=== PATIENT | female | born 1980 | race Hispanic/Latino ===

== ENCOUNTER 2019-11-10 14:47 | Observation (INO) | payer OTHER ==
[~2019-11-10] VITALS: Ht 149.9 cm; Wt 75.3 kg
--- NOTE | 2019-11-10 16:14 | Diagnostic Imaging Report ---
EXAMINATION: CXR 2 VIEW - HOPD INDICATION: Chest pain COMPARISON: None FINDINGS: LINES/TUBES:None LUNGS:The lungs are well-inflated. No focal consolidation or pulmonary edema. PLEURA:No pleural effusion or pneumothorax. MEDIASTINUM:The cardiomediastinal silhouette appears normal in size and shape. BONES/SOFT TISSUES:No acute osseous injury. ABDOMEN:No free air under the diaphragm. IMPRESSION: No focal pneumonia or pulmonary edema. Signed by: Little Navas MD on 11/10/2019 4:11 PM
[2019-11-10] MEDS ORDERED: SODIUM CHLORIDE 0.9% 1000ML 1,000 ML IV STA (16:48)
[2019-11-10] MEDS ORDERED: SODIUM CHLORIDE 0.9% 1000ML 1,000 ML ONE (16:54)
[2019-11-10] MEDS ORDERED: IOPAMIDOL 370 MG/ML 200 ML INFUS..BTL INJ ONE (16:59)
[2019-11-10] MEDS ORDERED: METOPROLOL TARTRATE INJ 1 MG/ML VIAL IV ONE (17:00)
--- NOTE | 2019-11-10 18:13 | Diagnostic Imaging Report ---
EXAM: CT Chest WITH contrast (PE Protocol) INDICATION: ^pain/ r/o pe COMPARISON: Same day chest x-ray TECHNIQUE: Chest was scanned utilizing a multidetector helical scanner from the lung apex through the level of the diaphragm after administration of IV contrast. Thin section reconstructions were obtained with special concentration on the pulmonary arteries. Coronal and sagittal reformations were obtained. Dose modulation, iterative reconstruction, and/or weight based adjustment of the mA/kV was utilized to reduce the radiation dose to as low as reasonably achievable. Pulmonary embolism protocol was performed. IV CONTRAST: 100 mL of Omnipaque 370 COMPLICATIONS: None RADIATION DOSE: Total DLP: 500.25 mGy*cm Estimated effective dose: (DLP x 0.014 x size factor) mSv CTDIvol has been reviewed. It is below the limits set by the Radiation Protocol Committee (RPC). FINDINGS: LINES/ TUBES: None. LUNGS AND AIRWAYS: No filling defect is identified within the pulmonary arteries to the segmental level. The lungs are unremarkable. Airways are normal. PLEURA: The pleural spaces are clear. HEART AND MEDIASTINUM: The thyroid gland is normal. No mediastinal, hilar or axillary lymphadenopathy. The heart is normal in size.. There is no pericardial effusion. . Main pulmonary artery measures 2.3 cm in diameter. UPPER ABDOMEN: Cholelithiasis. BONES: The visualized bony thorax is within normal limits. SOFT TISSUES: Unremarkable. IMPRESSION: No pulmonary emboli. Cholelithiasis without CT evidence of cholecystitis. Signed by: Dr. Alexx Pena MD on 11/10/2019 6:10 PM
--- NOTE | 2019-11-10 18:33 | Diagnostic Imaging Report ---
EXAM: CT Abdomen and Pelvis WITH contrast INDICATION: ^pain/ iv contrast r/o tumor(pheochromocytoma) COMPARISON: None. TECHNIQUE: Abdomen and pelvis were scanned utilizing a multidetector helical scanner from the lung base to the pubic symphysis after administration of IV contrast. Coronal and sagittal reformations were obtained. Dose modulation, iterative reconstruction, and/or weight based adjustment of the mA/kV was utilized to reduce the radiation dose to as low as reasonably achievable. Routine protocol was performed. Scan was performed when during portal venous phase. IV CONTRAST: 100 mL of Isovue-370 ORAL CONTRAST: None COMPLICATIONS: None RADIATION DOSE: Total DLP: 770.96 mGy*cm Estimated effective dose: (DLP x 0.015 x size factor) mSv CTDIvol has been reviewed. It is below the limits set by the Radiation Protocol Committee (RPC). FINDINGS: LINES and TUBES: None. LOWER THORAX: Unremarkable HEPATOBILIARY: No focal hepatic lesions. No biliary ductal dilation. GALLBLADDER: Cholelithiasis. No wall thickening. SPLEEN: No splenomegaly. PANCREAS: No focal masses or ductal dilatation. ADRENALS: No adrenal nodules KIDNEYS/URETERS: Kidneys enhance symmetrically. No hydronephrosis. No renal mass. Left renal inferior postop centimeter hypodensities too small to characterize. No stones. GI TRACT: No abnormal distention, wall thickening, or evidence of bowel obstruction. Appendix is normal. PELVIC ORGANS/BLADDER: Myomatous uterus. LYMPH NODES: No lymphadenopathy. VESSELS: Unremarkable. PERITONEUM / RETROPERITONEUM: No free air or fluid. BONES: Unremarkable. SOFT TISSUES: Unremarkable. IMPRESSION: 1. No acute inflammatory process in the abdomen/pelvis. 2. No mass visualized. 3. Cholelithiasis without CT evidence of cholecystitis. 4. Myomatous uterus. Signed by: Dr. Alexx Pena MD on 11/10/2019 6:30 PM
[2019-11-10] MEDS ORDERED: ENOXAPARIN INJ 80 MG/0.8 ML SYR SC STA (18:52)
[2019-11-10] MEDS ORDERED: NITROGLYCERIN 2% OINT 1 GM PKT TOP STA (18:52)
[2019-11-10] MEDS ORDERED: ASPIRIN 81 MG CHEW TAB PO ONE (19:45)
--- NOTE | 2019-11-10 19:45 | NUR ---
PT TO BE ADMITTED AND TRANSFERED TO [facility] MAIN, PT AWARE OF POC, PT VOICES NO COMPLAINTS AT THIS TIME, PT VITAL SIGNS STABLE.
[2019-11-10] MEDS ORDERED: ASPIRIN 81 MG CHEW TAB ONE (19:59)
[2019-11-10] MEDS ORDERED: NITROGLYCERIN 2% OINT 1 GM PKT ONE (19:59)
[2019-11-10] MEDS ORDERED: ENOXAPARIN SODIUM INJ 100 MG/ML SYR SC ONE (19:59)
--- NOTE | 2019-11-10 20:00 | NUR ---
[facility] CALLED FOR TRANSFER 45 ETA
--- OUTSIDE RECORDS SUMMARY | 2019-11-10 20:10 | XMS REPORT ---
Author Author [facility] Address Unknown Phone Unavailable Care Team Providers Care Furniture Salesperson Name Role Phone JACQUE REGALADO Unavailable Unavailable Problems This patient has no known problems. Allergies, Adverse Reactions, Alerts This patient has no known allergies or adverse reactions. Medications This patient has no known medications. Results Test Description Test Time Test Comments Text Results Atomic Results Result Comments CT ABD/PEL WITH CONTRAST-HOPD 2019-11-10 18:26:00 [place] [address] Patient Name: LUIS ENRIQUE GRANADOS MR #: [id number] : 1980 Age/Sex: 39/F Req #: [id number] Adm Physician: Ordered by: ALVINO REGALADO Report #: [id number] Location: [facility] Room/Bed: Procedure: [id number] HOPD/CT ABD/PEL WITH CONTRAST-HOPD Exam Date: Exam Time: REPORT STATUS: Signed EXAM: CT Abdomen and Pelvis WITH contrast IN DICATION: pain/ iv contrast r/o tumor(pheochromocytoma) COMPARISON: None. TECHNIQUE: Abdomen and pelvis were scanned utilizing a multidetector helical scanner from the lung base to the pubic symphysis after administration of IV contrast. Coronal and sagittal reformations were obtained. Dose modulation, iterative reconstruction, and/or weight based adjustment of the mA/kV was utilized to reduce the radiation dose to as low as reasonably achievable. Routine protocol was performed. Scan was performed when during portal venous phase. IV CONTRAST: 100 mL of Isovue-370 ORAL CONTRAST: None COMPLICATIONS: None RADIATION DOSE: Total DLP: 770.96 mGy*cm Estimated effective dose: (DLP x 0.015 x size factor) mSv CTDIvol has been reviewed. It is below the limits set by the Radiation Protocol Committee (RPC). FINDINGS: LINES and TUBES: None. LOWER THORAX: Unremarkable HEPATOBILIARY: No focal hepatic lesions. No biliary ductal dilation. GALLBLADDER: Cholelithiasis. No wall thickening. SPLEEN: No splenomegaly. PANCREAS: No focal masses or ductal dilatation. ADRENALS: No adrenal nodules KIDNEYS/URETERS: Kidneys enhance symmetrically. No hydronephrosis. No renal mass. Left renal inferior postop centimeter hypodensities too small to characterize. No stones. GI TRACT: No abnormal distention, wall thickening, or evidence of bowel obstruction. Appendix is normal. PELVIC ORGANS/BLADDER: Myomatous uterus. LYMPH NODES: No lymphadenopathy. VESSELS: Unremarkable. PERITONEUM / RETROPERITONEUM: No free air or fluid. BONES: Unremarkable. SOFT TISSUES: Unremarkable. IMPRESSION: 1. No acute inflammatory process in the abdomen/pelvis. 2. No mass visualized. 3. Cholelithiasis without CT evidence of cholecystitis. 4. Myomatous uterus. Signed by: Dr. Alexx Wood MD on 11/10/2019 6:30 PM Dictated By: ALEXX WOOD MD 29 Transcribed By: ARTURO on 11/10/191829 COPY TO: ALVINO REGALADO CT ANGIO CHEST-HOPD 2019-11-10 18:06:00 [place] [address] Patient Name: LUIS ENRIQUE GRANADOS MR #: [id number] : 1980 Age/Sex: 39/F Req #: [id number] Adm Physician: Ordered by: ALVINO REGALADO Report #: [id number] Location: [facility] Room/Bed: Procedure: [id number] HOPD/CT ANGIO CHEST-HOPD Exam Date: Exam Time: REPORT STATUS: Signed EXAM: CT Chest WITH contrast (PE Protocol) INDICATION: pain/ r/o pe COMPARISON: Same day chest x-ray TECHNIQUE: Chest was scanned utilizing a multidetector helical scanner from the lung apex through the level of the diaphragm after administration of IV contrast. Thin section reconstructions were obtained with special concentration on the pulmonary arteries. Coronal and sagittal reformations were obtained. Dose modulation, iterative reconstruction, and/or weight based adjustment of the mA/kV was utilized to reduce the radiation dose to as low as reasonably achievable. Pulmonary embolism protocol was performed. IV CONTRAST: 100 mL of Omnipaque 370 COMPLICATIONS: None RADIATION DOSE: Total DLP: 500.25 mGy*cm Estimated effective dose: (DLP x 0.014 x size factor) mSv CTDIvol has been reviewed. It is below the limits set by the Radiation Protocol Committee (RPC). FINDINGS: LINES/ TUBES: None. LUNGS AND AIRWAYS: No filling defect is identified within the pulmonary arteries to the segmental level. The lungs are unremarkable. Airways are normal. PLEURA: The pleural spaces are clear. HEART AND MEDIASTINUM: The thyroid gland is normal. No mediastinal, hilar or axillary lymphadenopathy. The heart is normal in size.. There is no pericardial effusion. . Main pulmonary artery measures 2.3 cm in diameter. UPPER ABDOMEN: Cholelithiasis. BONES: The visualized bony thorax is within normal limits. SOFT TISSUES: Unremarkable. IMPRESSION: No pulmonary emboli. Cholelithiasis without CT evidence of cholecystitis. Signed by: Dr. Alexx Wood MD on 11/10/2019 6:10 PM Dictated By: ALEXX WOOD MD 09 Transcribed By: ARTURO on 11/10/191809 COPY TO: ALVINO REGALADO CXR 2 VIEW - HOPD 2019-11-10 16:07:00 [place] [address] Patient Name: LUIS ENRIQUE GRANADOS MR #: [id number] : 1980 Age/Sex: 39/F Req #: [id number] Adm Physician: Ordered by: ALVINO REGALADO Report #: [id number] Location: [facility] Room/Bed: Procedure: [id number] HOPD/CXR 2 VIEW - HOPD Exam Date: 11/10/19 Exam Time: 1544 REPORT STATUS: Signed EXAMINATION: CXR 2 VIEW - HOPD INDICATION: Chest pain COMPARISON: None FINDINGS: LINES/TUBES:None LUNGS:The lungs are well-inflated. No focal consolidation or pulmonary edema. PLEURA:No pleural effusion or pneumothorax. MEDIASTINUM:The cardiomediastinal silhouette appears normal in size and shape. BONES/SOFT TISSUES:No acute osseous injury. ABDOMEN:No free air under the diaphragm. IMPRESSION: No focal pneumonia or pulmonary edema. Signed by: Renaldo Birmingham MD on 11/10/2019 4:11 PM Dictated By: RENALDO BIRMINGHAM MD 161 Transcribed By: ARTURO on 11/10/19 161 COPY TO: ALVINO REGALADO
[2019-11-10 21:24] VITALS: BP 130/84
[2019-11-11] VITALS (8 sets, daily range): BP systolic 93–131; BP diastolic 45–75
[2019-11-11 00:48] LABS: CREATINE KINASE MB 1.1 ng/mL (0-5.0)
[2019-11-11] MEDS ORDERED: ASPIRIN325 MG PO (01:03)
[2019-11-11] MEDS ORDERED: ONDANSETRON HCL INJ 2MG/ML 2ML 2 MG/ML VIAL IV PRN (01:30)
[2019-11-11 06:51] LABS: CREATINE KINASE MB 1.1 ng/mL (0-5.0)
[2019-11-11 07:12] LABS: CHOL/HDL RATIO 4.2 (3.0-3.6)
[2019-11-11 10:47] LABS: BASOPHILS % 0.2 % (0.0-1.0); EOSINOPHILS % 0.2 % (0.0-6.0); HEMATOCRIT 29.4 % (34.2-44.1); HEMOGLOBIN 8.9 g/dL (12.0-16.0); LYMPHOCYTES # (AUTO) 1.6 (1.0-3.2); LYMPHOCYTES % 17.3 % (18.0-39.1); MEAN CORPUSCULAR HGB CONC 30.3 g/dL (31-35); MEAN CORPUSCULAR VOLUME 82.6 fL (81-99); MONOCYTES # (AUTO) 0.3 (0.2-0.8); MONOCYTES % 2.9 % (4.4-11.3); NEUTROPHILS # (AUTO) 7.4 (2.1-6.9); NEUTROPHILS % 79.2 % (38.7-80.0); PLATELET COUNT 356 x10e3/uL (140-360); RED BLOOD COUNT 3.56 x10e6/uL (3.6-5.1); RED CELL DISTRIBUTION WIDTH 15.6 % (11.7-14.4)
[2019-11-11] MEDS ORDERED: ACETAMINOPHEN 325 MG TAB PO PRN (11:00)
[2019-11-11 11:17] LABS: ANION GAP 13.9 mmol/L (8-16); BLOOD UREA NITROGEN 13 mg/dL (7-26); BUN/CREATININE RATIO 22 (6-25); CALCIUM 7.9 mg/dL (8.4-10.2); CARBON DIOXIDE 18 mmol/L (22-29); CHLORIDE 109 mmol/L (98-107); CREATININE, SERUM 0.59 mg/dL (0.57-1.11); EST GLOMERULAR FILTRATION RATE > 60 ML/MIN (60-); GLUCOSE 121 mg/dL (74-118); POTASSIUM 3.9 mmol/L (3.5-5.1); SODIUM 137 mmol/L (136-145)
[2019-11-11] MEDS ORDERED: ACETAMINOPHEN 325 MG TAB PO ONE (11:25)
--- NOTE | 2019-11-11 12:05 | NUR ---
The pt. is out of the room for stress test.
--- NOTE | 2019-11-11 14:05 | Consultation ---
DATE OF CONSULTATION: 11/11/2019 Cardiology Consultation REQUESTING PHYSICIAN: Uil Neumann MD REASON FOR CONSULTATION: Chest pain. HISTORY OF PRESENT ILLNESS: This is a 39-year-old woman without significant past medical history, who presents with complaints of chest pain. The patient reports she has been experiencing pressure in her back with radiation to her left shoulder and chest, 10/10 in severity for the last 2 weeks. The pain comes and goes. Typically lasting approximately an hour at a time and occurring twice a day. She reports the pain is associated with shortness of breath, but no nausea or diaphoresis. Yesterday, she experienced palpitations associated with near syncope for which she presented to the ER. REVIEW OF SYSTEMS: Negative except as per HPI. PAST MEDICAL HISTORY: Denies. PAST SURGICAL HISTORY: Tubal ligation. ALLERGIES: NO KNOWN DRUG ALLERGIES. MEDICATIONS: Please see medication reconciliation. SOCIAL HISTORY: Denies tobacco, alcohol, or illicit drugs. FAMILY HISTORY: Denies family history of cardiac disease. PHYSICAL EXAMINATION: VITAL SIGNS: Temperature 97.7 degrees, pulse 78, respiratory rate of 16, blood pressure 116/75, oxygen saturation 97% on room air. GENERAL: Well-developed, well-nourished woman in no acute distress. HEENT: Normocephalic, atraumatic. Pupils are equal. No scleral icterus. NECK: Supple. No thyromegaly or cervical lymphadenopathy. No carotid bruits. LUNGS: Clear to auscultation bilaterally. No wheezes or crackles. HEART: Normal rate, regular rhythm. No murmur. Normal S1, S2. ABDOMEN: Soft, nontender. EXTREMITIES: No edema. NEUROLOGIC: Nonfocal exam. LABORATORY DATA: WBC 9.36, hemoglobin 8.9, hematocrit 29.4, platelets 356. Sodium 137, potassium 3.9, chloride 109, CO2 18, BUN 13, creatinine 0.59, troponin 0.006. EKG, sinus tachycardia. Nonspecific T-wave abnormality. IMPRESSION: 1. Chest pain. 2. Palpitations. 3. Near syncope. RECOMMENDATIONS: 1. No evidence of myocardial infarction on serial cardiac biomarkers. Trend troponin. Obtain echocardiogram to evaluate for structural heart disease given her chest pain. We will proceed with ischemic evaluation with treadmill nuclear stress test today. Monitor patient on telemetry while admitted. If no arrhythmias are noted, she will need an outpatient playground monitor. 2. Further recommendations pending test results. Thank you for this consult. We will continue to follow. MD CARLOS EDUARDO Capellan/MODL /[id number]
--- NOTE | 2019-11-11 16:00 | NUR ---
The pt returned from the stress test and Dr. Rios called to say that the pt. can discharge home if 3rd cardiac marker is neg.
[2019-11-11] MEDS ORDERED: FAMOTIDINE 20 MG TAB PO SCH (16:30)
[2019-11-11 17:44] LABS: CREATINE KINASE MB 1.1 ng/mL (0-5.0)
--- NOTE | 2019-11-12 08:17 | Discharge Summary ---
ADMISSION DIAGNOSES: Chest pain, elevated D-dimer, obesity with a BMI of 33.5. DISCHARGE DIAGNOSES: Chest pain, elevated D-dimer, obesity with a BMI of 33.5, rule out acute coronary syndrome. HISTORY: None. SURGICAL HISTORY: Tubal ligation. FAMILY HISTORY: The patient's brother had cancer. SOCIAL HISTORY: Noncontributory. HOSPITAL COURSE: A 39-year-old female admits with complaints of constant left chest pressure for 2 weeks. The pain radiates to her left shoulder and back. Yesterday, she had palpitations and felt lightheaded, so she came to the ER. She denies nausea, vomiting, and diaphoresis. She also has intermittent shortness of breath and bilateral lower extremity edema over the last 2 weeks. On admission, the patient had a chest x-ray, which was negative for edema and pneumonia. She had an elevated D-dimer, so a CTA of the chest was done, which was negative for PE. She also had a CT of the abdomen and pelvis, which showed no acute inflammatory process in the abdomen or pelvis, cholelithiasis without evidence of cholecystitis and myomatous uterus. Cardiology was consulted. Troponins were negative x3. Lipid panel showed an elevated triglyceride level. The patient was advised on a low-fat, low-cholesterol diet. TSH was within normal limits. Echo was done, which showed an EF of 60%. Cardiology decided to take [facility] test, which was negative. Per Cardiology, the patient can discharge home. She is already taking aspirin daily. She will follow up with primary care and Cardiology in 1 to 2 weeks. The patient understands discharge instructions and agrees to plan. Vital signs stable, the patient afebrile. Dictated by Olinda Scott NP MD KAYDEN Ledezma/MODL /[id number]
--- NOTE | 2019-11-12 08:22 | Myoview Stress Test ---
DATE OF STUDY: 11/11/2019 10:21:00 Stress Test - Treadmill ONLY STUDY PERFORMED: Nuclear stress report. PROCEDURE TITLE: Rest/stress single isotope SPECT imaging with pharmacologic stress and gated SPECT imaging. INDICATION: Chest pain. PROCEDURE IN DETAIL: The patient performed treadmill exercise using a Travis protocol exercising for 7 minutes 1 seconds to stage III and completing estimated workload of 10.1 metabolic equivalents (METS). The heart rate was 104 beats per minute at rest that increased to 175 beats per minute at peak exercise, which was 97% of the maximum predicted heart rate. The resting blood pressure was 119/76 mmHg and increased to 144/84 mmHg, which is a normal response. The resting electrocardiogram demonstrated normal sinus rhythm. There were no ST-segment changes suggestive of myocardial ischemia. Myocardial perfusion imaging was performed at rest following the injection of 11 mCi of tetrofosmin. At peak pharmacologic effect, the patient was injected with 31.8 mCi of tetrofosmin. Gated post-stress tomographic imaging was performed. FINDINGS: The overall quality of study is fair. Left ventricular cavity is noted to be normal size on the rest and stress studies. SPECT images demonstrate homogeneous tracer distribution throughout the myocardium. Gated SPECT imaging reveals normal myocardial thickening and wall motion. Left ventricular ejection fraction was calculated to be 68%. IMPRESSION: Myocardial perfusion imaging is normal. Overall, left ventricular systolic function was normal without regional wall motion abnormalities. Francia Rios MD ABS/MODL /[id number]
== END 2019-11-11 21:44 | disposition home or self-care (01) ==
LOC: FSED 14:47 → ERHOLD 19:49 → MED/SURG3 21:35
PROVIDERS: ADMIT Internal Medicine; ATTEND Internal Medicine
DX: R00.2 Palpitations (principal); R07.9 Chest pain, unspecified; E66.9 Obesity, unspecified; Z68.33 Body mass index [BMI] 33.0-33.9, adult
CPT/HCPCS: 36415 ×2; 71046; 71275; 74177; 78452; 80048; 80053; 80061; 82550 ×2; 82553 ×2; 83735; 83880; 84443; 84484 ×2; 85025 ×2; 85379; 85610; 93005; 93017; 93306; 96374; 99284; A9502; G0378 ×2; J1650; J2405; J7030; Q9967